=== PATIENT | male | born 1950 | race African-American/Black ===

== ENCOUNTER 2016-08-29 22:21 | Emergency (ER) | payer MEDICARE ==
[~2016-08-29] VITALS: Ht 175.3 cm; Wt 63.5 kg
[~2016-08-29 22:21] MED LIST: ACETAMINOPHEN-1 EAC1 ORAL; ALBUTEROL SULF8.5 GM INH; AMOXICILLIN500 MG ORAL; IBUPROFEN800 MG ORAL; TYLENOL EXTRA500 MG ORAL
[2016-08-29 22:51] VITALS: BP 137/75
--- NOTE | 2016-08-29 22:53 | Emergency Room Report ---
History of Present Illness General Chief Complaint: Pain Source: Patient Present Illness HPI This is a 58-year-old male with no significant past medical history. He presents with chief complaint of sore throat he said for over a month now. In reality it's over 2 months. He was here on July 23 for the same complaint. Back then it was 4 weeks. He complaining of hoarseness of his throat. Also a mild cough. He said he has no weight loss about 20 pounds. Denies any trauma. Denies any fever chill. Denies any other complaint. Denies any tobacco smoking or chewing. Denies any drug use. Allergies: Coded Allergies: No Known Allergies (Unverified , 07/23/16) Patient History Past Medical History: see triage record, old chart reviewed Past Surgical History: none Pertinent Family History: none Social History: Denies: alcohol use, drug use, smoking Immunizations: other Reviewed Nursing Documentation: PMH: Agreed, PSxH: Agreed Nursing Documentation-PMH Past Medical History: No History, Except For Hx Asthma: Yes Review of Systems Eye: Denies: blurred vision, eye pain ENT: Denies: ear pain, nose congestion, throat swelling Respiratory: Denies: cough, shortness of breath Cardiovascular: Denies: chest pain, palpitations Gastrointestinal: Denies: abdominal pain, diarrhea, nausea, vomiting Musculoskeletal: Denies: back pain, joint pain Skin: Denies: rash Neurological: Denies: headache, numbness Endocrine: Denies: increased thirst, increased urine Hematologic/Lymphatic: Denies: easy bruising All Other Systems: negative except mentioned in HPI Physical Exam Vital Signs Date Time Temp Pulse Resp B/P Pulse Ox O2 Delivery O2 Flow Rate FiO2 08/29/16 22:27 97.9 66 14 137/75 100 Room Air vitals normal Sp02 EP Interpretation: reviewed, normal General Appearance: well appearing, no apparent distress, alert, thin Head: normocephalic, atraumatic Eyes: bilateral eye EOMI, bilateral eye PERRL ENT: hearing grossly normal, normal pharynx Neck: full range of motion, supple, no meningismus, other - Enlarged lymph nodes/mass left neck. Respiratory: chest non-tender, lungs clear, normal breath sounds Cardiovascular #1: regular rate, rhythm, no murmur Gastrointestinal: normal bowel sounds, non tender, no mass, no organomegaly, no bruit, non-distended Musculoskeletal: back normal, gait/station normal, normal range of motion Psychiatric: mood/affect normal Skin: warm/dry Medical Decision Making Diagnostic Impression: Primary Impression: Throat discomfort Additional Impression: Weight loss, unintentional ER Course Patient presents with throat pain and discomfort with hoarseness and weight loss. Questionable mass on my exam versus enlarged lymph node/reactive no. This is very concerning for neoplastic process. I relayed this to the patient. He would be to see an ear nose and throat Dr. for further workup and biopsy. Because of insurance he will be referred from his primary care Dr. I stressed this to the patient that he needs to be seen [facility]. Last Vital Signs Date Time Temp Pulse Resp B/P Pulse Ox O2 Delivery O2 Flow Rate FiO2 08/29/16 22:27 97.9 66 14 137/75 100 Room Air Status: improved Disposition: HOME, SELF-CARE Condition: Stable Additional Instructions: Followup with your Dr. within a week. He will need a referral to see an ENT Dr. for further workup. You may need possible biopsy. Your symptoms is concerning for possible cancer. Return if symptom worsen. KYRA ELDER M.D. Aug 29, 2016 22:53
[2016-08-29 23:04] VITALS: BP 137/75
== END 2016-08-29 23:04 | disposition home or self-care (01) ==
LOC: EMR 23:00
DX: R07.0 Pain in throat (principal); R63.4 Abnormal weight loss; Z68.20 Body mass index [BMI] 20.0-20.9, adult; J45.909 Unspecified asthma, uncomplicated
CPT/HCPCS: 99282

== ENCOUNTER 2017-02-11 20:14 | Emergency (ER) | payer MEDICARE, MEDICAID ==
[~2017-02-11] VITALS: Ht 175.3 cm; Wt 54.4 kg
[2017-02-11] MEDS ORDERED: NORCO 5-325 TA1 EACH ORAL (20:28)
[2017-02-11 21:00] VITALS: BP 131/76
[2017-02-11] MEDS ORDERED: Ketorolac 60mg Inj IM ONE (21:15)
[2017-02-11] MEDS ORDERED: Cyclobenzaprine 10mg Tab ORAL ONE (21:15)
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
[2017-02-11] MEDS ORDERED: CYCLOBENZAPRINE10 MG ORAL (21:57)
[2017-02-11] MEDS ORDERED: ACETAMINOPHEN500 M3 ORAL (21:57)
[2017-02-11] MEDS ORDERED: IBUPROFEN600 MG ORAL (21:57)
[2017-02-11 22:00] VITALS: BP 125/76
[2017-02-11 22:05] VITALS: BP 125/76
== END 2017-02-11 22:05 | disposition home or self-care (01) ==
LOC: EMR 21:11
DX: M54.9 Dorsalgia, unspecified (principal); M62.830 Muscle spasm of back; Y04.2XXA Assault by strike against or bumped into by another person, initial encounter; Y92.89 Other specified places as the place of occurrence of the external cause
CPT/HCPCS: 96372; 99283

== ENCOUNTER 2017-04-25 08:27 | Emergency (ER) | payer MEDICARE, MEDICAID ==
[~2017-04-25] VITALS: Ht 175.3 cm; Wt 53.5 kg
[~2017-04-25 08:27] MED LIST changes: +ACETAMINOPHEN500 M3 ORAL; +CYCLOBENZAPRINE10 MG ORAL; +IBUPROFEN600 MG ORAL; +NORCO 5-325 TA1 EACH ORAL
[2017-04-25 08:56] VITALS: BP 141/79
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
[2017-04-25] MEDS ORDERED: TYLENOL325 MG ORAL (10:34)
[2017-04-25] MEDS ORDERED: IBUPROFEN600 MG ORAL (10:34)
[2017-04-25 11:14] VITALS: BP 141/79
--- NOTE | 2017-04-26 09:51 | Diagnostic Imaging Report ---
Clinical Indication:TRAUMA Technique: 3 views of the left wrist Comparison: None Findings: Small cyst or erosion is seen in the ulnar styloid. No acute fractures. No dislocations. The joint spaces are preserved. Impression: No acute bony trauma This agrees with the preliminary interpretation provided overnight by [facility] service.
== END 2017-04-25 11:14 | disposition home or self-care (01) ==
LOC: EMR 09:15
DX: S60.212A Contusion of left wrist, initial encounter (principal); V18.0XXA Pedal cycle driver injured in noncollision transport accident in nontraffic accident, initial encounter; Y93.55 Activity, bike riding; Y92.9 Unspecified place or not applicable; J45.909 Unspecified asthma, uncomplicated; Z85.72 Personal history of non-Hodgkin lymphomas
CPT/HCPCS: 99284